=== PATIENT | female | born 1995 | race Caucasian/White ===

== ENCOUNTER 2016-07-08 10:18 | Emergency (ER) | payer BC ==
--- NOTE | ~2016-07-08 | ER ---
PATIENT'S NAME: THO LEHMAN [facility] AGE: 20 Y [address] ROOM: [place] [id number] LOCATION: ED ADMIT DATE: 07/08/2016 ER/Outpatient Report DISCHARGE DATE: 07/08/2016 FAMILY PHYSICIAN: Murali Segura PA-C ATTENDING PHYSICIAN: Kalin Velasco Time of Arrival: 1018 hours. Time of Evaluation: 1028 hours. CHIEF COMPLAINT: Left lower quadrant abdominal pain. HISTORY OF PRESENT ILLNESS: The patient is a 20-year-old female who presents to the emergency department today with a chief complaint of left lower quadrant abdominal pain. She reports this started approximately a week ago. It has been off and on since then. This pain started at 9 o'clock yesterday. She does have some increased intensity since yesterday. Does have some pelvic pressure. Denies any fevers or chills. No constipation. Does have some nausea. No vomiting. No diarrhea or constipation. No urinary frequency, urgency, or painful urination. Last menstrual period was on 06/24/2016, started spotting for 2 days at that time. The patient did have Nexplanon removed on 06/18/2016. It is a sharp, constant type pain in the left lower quadrant. It is currently 4/10 in severity. PAST MEDICAL HISTORY: Anxiety. PAST SURGICAL HISTORY: Myringotomy tubes, upper GI, tonsils, and adenoids. SOCIAL HISTORY: The patient smokes half pack per day for 5 years. Denies any alcohol or illicit drug use. ALLERGIES: CYSTEX. MEDICATIONS: Alprazolam. REVIEW OF SYSTEMS: All systems are reviewed by myself and negative with the exception of those discussed in the HPI and past medical history. PATIENT'S NAME: THO LEHMAN [facility] AGE: 20 Y [address] ROOM: [place] [id number] LOCATION: ED ADMIT DATE: 07/08/2016 ER/Outpatient Report DISCHARGE DATE: 07/08/2016 FAMILY PHYSICIAN: Murali Segura PA-C ATTENDING PHYSICIAN: Kalin Velasco PHYSICAL EXAMINATION: VITAL SIGNS: Weight 75 kg. Blood pressure 129/73, pulse 83, respiratory rate 20, temperature 98.1, oxygen saturation 100% on room air. GENERAL: The patient is a 20-year-old female, who appears stated age, in no acute distress at this time. Well developed, well nourished. HEENT: Normocephalic, atraumatic. Pupils are equal, round, and reactive to light and accommodation. NECK: Supple. There is no nuchal rigidity. CARDIOVASCULAR: Regular rate and rhythm. No murmurs, rubs, or gallops. LUNGS: Clear to auscultation bilaterally. No wheezes, rales, or rhonchi. ABDOMEN: Soft with mild left lower quadrant tenderness to palpation. There is no rebound, rigidity, or guarding. Positive bowel sounds. MUSCULOSKELETAL: The patient moves all 4 extremities. SKIN: Warm and dry. There are no rashes or lesions noted. LABORATORY DATA AND X-RAYS: Urinalysis is negative. Urine hCG is negative. IMPRESSION: 1. Acute nonsurgical left lower quadrant abdominal pain, unclear etiology. 2. Initial visit. EMERGENCY DEPARTMENT COURSE: The patient was brought back to the examination room. Seen and evaluated by myself. Laboratory analysis was obtained as described above. I did perform a bedside ultrasound, which was performed by myself to see bladder and uterus. There are no obvious abnormalities noted. I do not see any obvious large masses noted in the adnexal region. I discussed the results with the patient. I have re-examined the patient's abdominal exam. She continues to have a nonsurgical abdominal exam at this time. I do feel she is safe for outpatient evaluation at this time. I have asked her to follow up with Dr. Segura in 2 days for re-evaluation. I have recommended ibuprofen and Tylenol as needed for pain. I have discussed return to care instructions including worsening symptoms or any other concerns to return to the emergency department as soon as possible. The patient is agreeable without further questions at this time. DISPOSITION: The patient is discharged to home in good condition. DO ZACH DUVALL/osorio PATIENT'S NAME: THO LEHMAN [facility] AGE: 20 Y [address] ROOM: [place] [address] LOCATION: [facility] ADMIT DATE: 07/08/2016 ER/Outpatient Report DISCHARGE DATE: 07/08/2016 FAMILY PHYSICIAN: Murali Segura PA-C ATTENDING PHYSICIAN: Kalin Velasco /[id number] d: 07/08/167 t: 07/13/16 0844, OUTPATIENT REPORT
[2016-07-08 10:56] LABS: BILIRUBIN URINE NEGATIVE (NEGATIVE); BLOOD URINE NEGATIVE /UL (NEGATIVE); COLOR URINE YELLOW (YELLOW); GLUCOSE URINE NEGATIVE (NEGATIVE); KETONE URINE NEGATIVE (NEGATIVE); LEUKOCYTES URINE NEGATIVE /UL (NEGATIVE); NITRITE URINE NEGATIVE (NEGATIVE); PROTEIN URINE NEGATIVE (NEGATIVE); SPEC GRAVITY URINE 1.015 (1.003-1.035); TURBIDITY URINE CLEAR (CLEAR); UROBILINOGEN URINE NORMAL (NORMAL)
== END 2016-07-08 12:35 ==
LOC: GMED 10:18
PROVIDERS: Emergency Medicine
DX: R10.32 Left lower quadrant pain (principal); F41.9 Anxiety disorder, unspecified; F17.210 Nicotine dependence, cigarettes, uncomplicated; Z88.8 Allergy status to other drugs, medicaments and biological substances; Z98.890 Other specified postprocedural states; Z79.899 Other long term (current) drug therapy

== ENCOUNTER 2016-08-27 13:52 | Emergency (ER) | payer BC ==
--- NOTE | ~2016-08-27 | ER ---
PATIENT'S NAME: THO LEHMAN [facility] AGE: 20 Y [address] ROOM: [place] [address] LOCATION: ED ADMIT DATE: 08/27/2016 ER/Outpatient Report DISCHARGE DATE: 08/27/2016 FAMILY PHYSICIAN: Murali Segura PA-C ATTENDING PHYSICIAN: Azalea Velasco TIME OF ARRIVAL: 1356 hours. TIME OF EVALUATION: 1401 hours. CHIEF COMPLAINT: Hives. HISTORY OF PRESENT ILLNESS: The patient is a 20-year-old female who presents to the emergency department today with a chief complaint of hives. She reports it started about 5 days prior to arrival. She was started on some methylprednisolone, Benadryl, and triamcinolone. She reports the itching just got worse, so she had to call in to work today and does require a work note. She denies any fevers or chills. No nausea or vomiting. This all started after she started a new job at the [employer]. She denies any diarrhea or constipation. No nausea or vomiting. No troubles with breathing. PAST MEDICAL HISTORY: Contact dermatitis. PAST SURGICAL HISTORY: Ear tubes, tonsils and adenoids, and EGD. She is approximately 5 weeks' . SOCIAL HISTORY: The patient smokes half pack per day, quit 3 to 5 weeks ago. Denies any alcohol or illicit drug use. ALLERGIES: CYSTEX, AEROSOL. MEDICATIONS: 1. Methylprednisolone. 2. Benadryl. 3. Triamcinolone cream. REVIEW OF SYSTEMS: PATIENT'S NAME: THO LEHMAN [facility] AGE: 20 Y [address] ROOM: [place] [address] LOCATION: ED ADMIT DATE: 08/27/2016 ER/Outpatient Report DISCHARGE DATE: 08/27/2016 FAMILY PHYSICIAN: Murali Segura PA-C ATTENDING PHYSICIAN: Azalea Velacso All systems are reviewed by myself and are negative with the exception of those discussed in the HPI and Past Medical History. PHYSICAL EXAMINATION: VITAL SIGNS: Weight 73.7 kg. Blood pressure 150/68, pulse 86, respiratory rate 16, temperature 98.5, and oxygen saturation 96% on room air. GENERAL: The patient is a 20-year-old female who appears stated age. HEENT: Normocephalic, atraumatic. Pupils are equal, round, and reactive to light. NECK: Supple. There is no nuchal rigidity. CARDIOVASCULAR: Regular rate and rhythm. No murmurs, rubs, or gallops. LUNGS: Clear to auscultation bilaterally. No wheezes, rales, or rhonchi. ABDOMEN: Soft, nontender, and nondistended. No rebound, rigidity, or guarding. MUSCULOSKELETAL: The patient moves all 4 extremities. SKIN: The patient does have multiple excoriation-type lesions including the web spaces of her fingers and hands. She does have multiple hives diffusely throughout her body. LABORATORY AND X-RAY DATA: None. IMPRESSION: 1. Rash, not otherwise specified. 2. Initial visit. EMERGENCY DEPARTMENT COURSE: The patient was brought back to the examination room. Seen and evaluated by myself. History and physical performed as described above. I have discussed the results of the history and physical with the patient. We will place the patient on permethrin. We did give a dose of Solu-Medrol IM. I have discussed following up with Dermatology. She is to call for an appointment as soon as possible. I have discussed return to care instructions including worsening symptoms, troubles breathing, or any other concerns, to return to the emergency department as soon as possible. The patient is agreeable without further questions at this time. DISPOSITION: The patient is discharged to home in good condition. AZALEA VELASCO DO PATIENT'S NAME: THO LEHMAN [facility] AGE: 20 Y [address] ROOM: [place] [address] LOCATION: [facility] ADMIT DATE: 08/27/2016 ER/Outpatient Report DISCHARGE DATE: 08/27/2016 FAMILY PHYSICIAN: Murali Segura PA-C ATTENDING PHYSICIAN: Azalea Velasco/osorio /[id number] d: 08/27/16 1527 t: 07/17/17 2033, OUTPATIENT REPORT
== END 2016-08-27 13:55 | disposition disaster alternative care site (69) ==
LOC: GMED 13:52
DX: O99.89 Other specified diseases and conditions complicating pregnancy, childbirth and the puerperium (principal); R21 Rash and other nonspecific skin eruption; Z98.890 Other specified postprocedural states; Z87.891 Personal history of nicotine dependence; Z88.8 Allergy status to other drugs, medicaments and biological substances; Z79.899 Other long term (current) drug therapy; Z3A.01 Less than 8 weeks gestation of pregnancy
CPT/HCPCS: J2930